=== PATIENT | male | born 1975 | race African-American/Black ===

== ENCOUNTER 2023-05-01 18:51 | Observation (INO) ==
[2023-05-01] MEDS ORDERED: NS 0.9% 1000 ml BAG 1,000 ML IV ONE (19:32)
[2023-05-01 19:36] LABS: ABS Basophils 0.1 10^3/uL (0.0-0.1); ABS Eosinophils 0.1 10^3/uL (0.0-0.5); ABS Lymphocytes 1.2 10^3/uL (1.0-4.8); ABS Monocytes 0.7 10^3/uL (0.0-1.1); ABS Neutrophils 10.3 10^3/uL (1.5-7.6); ABS Nucleated RBC 0.01 10^3/ul; Eosinophil % 1.2 %; Hematocrit 37.9 % (38-53); Hemoglobin 12.6 g/dL (13.2-16.3); Lymphocyte % 9.5 %; Mean Corpuscular Hemoglobin 26.3 pg (27-33); Mean Corpuscular Hgb Conc 33.3 g/dL (31-36); Mean Corpuscular Volume 79.1 fL (80-97); Mean Platelet Volume 7.6 fL (7.5-11.2); Nucleated Red Blood Cells % 0.1 %/100WBC (0.0-0.8); Platelet Count 311 10^3/uL (150-450); Red Cell Distribution Width 14.4 % (12-17); White Blood Count 12.5 10^3/uL (3.6-10.2)
[2023-05-01 19:37] LABS: Urine Appearance Clear; Urine Bilirubin Negative (Negative); Urine Blood 1+ (Negative); Urine Color Yellow; Urine Glucose Negative (Negative); Urine Ketones Negative (Negative); Urine Nitrite Negative (Negative); Urine Protein 1+(30 mg/dL) (Negative); Urine Specific Gravity 1.027 (1.002-1.030); Urine Urobilinogen Negative (Negative)
[2023-05-01 19:51] LABS: Albumin 3.9 g/dL (3.2-5.2); Albumin/Globulin Ratio 1.3 (1-3); C Reactive Protein 66.29 mg/L (<8.01); Calcium 9.1 mg/dL (8.6-10.3); Creatinine, Serum 1.06 mg/dL (0.67-1.17); Potassium 3.7 mmol/L (3.5-5.0); Total Bilirubin 0.3 mg/dL (0.2-1.0); Total Protein 6.9 g/dL (6.4-8.9); eGFR CKD-EPI 86.6 (>60)
[2023-05-01 20:19] LABS: Urine Bacteria Absent (Absent); Urine Red Blood Cell 1+(3-5/hpf) (Absent); Urine Squamous Epithelial Cell Present (Absent); Urine White Blood Cell Trace(0-5/hpf) (Absent)
[2023-05-01] MEDS ORDERED: Iohexol 300 (CONTRAST) 10 ML SDV IV ONE (20:39)
[2023-05-01] MEDS: Piperacillin/Tazobac 3.375 BAG 3.375 GM/100 ML BAG IV ONE ×3 (21:37→21:54)
[2023-05-01] MEDS ORDERED: Ondansetron 4 mg VIAL 2 MG/ML 2 ml VIAL IV PRN (21:53)
[2023-05-01] MEDS ORDERED: HYDROmorphone 1 MG/1 ML SYRINGE IV SLOW PU PRN (21:53)
[2023-05-01] MEDS ORDERED: oxyCODONE/Acetamin 5/325 mg TAB PO PRN (21:53)
[2023-05-01] MEDS ORDERED: Calcium Carb (TUMS) 500 mg CHEW TAB PO PRN (21:57)
[2023-05-01] MEDS ORDERED: hydrALAZINE 20 mg/ml 1 ML Vial IV IV SLOW PU PRN (21:59)
[2023-05-01] MEDS ORDERED: Metoclopramide 5 MG/ML VIAL (10 mg) IV PRN (22:01)
[2023-05-01] MEDS: NS 0.9% 1000 ml BAG 1,000 ML IV SCH (23:17)
[2023-05-02] MEDS: HYDROmorphone 1 MG/1 ML SYRINGE IV SLOW PU PRN ×3 (00:27→07:15)
[2023-05-02] MEDS: Piperacillin/Tazobac 3.375 BAG 3.375 GM/100 ML BAG IV SCH ×3 (02:45→17:58)
[2023-05-02] MEDS ORDERED: Rocuronium 50 mg VIAL 10 mg/ml 5 ml VIAL (50 mg) ONE (09:34)
[2023-05-02] MEDS ORDERED: Ondansetron 4 mg VIAL 2 MG/ML 2 ml VIAL ONE (09:38)
[2023-05-02] MEDS ORDERED: Dexamethasone IV 4 MG/ML VIAL 1 ml VIAL ONE (09:38)
[2023-05-02] MEDS ORDERED: Lidocaine 2% PF 5 ML VIAL ONE (09:38)
[2023-05-02] MEDS ORDERED: Propofol 10 MG/ML 20 ML BTL ONE (09:38)
[2023-05-02] MEDS ORDERED: Midazolam 2 mg/2 ml VIAL 1 mg/ml 2 ml VIAL (2 mg) ONE (09:39)
[2023-05-02] MEDS ORDERED: Naloxone 0.4 mg VIAL 0.4 mg/ml 1 ml VIAL IV PRN (09:39)
[2023-05-02] MEDS ORDERED: Ondansetron 4 mg VIAL 2 MG/ML 2 ml VIAL IV PRN (09:39)
[2023-05-02] MEDS ORDERED: HYDROmorphone 1 MG/1 ML SYRINGE IV PRN (09:39)
[2023-05-02] MEDS ORDERED: fentaNYL 100 mcg/2 ml 50 MCG/ML VIAL IV PRN (09:39)
[2023-05-02] MEDS ORDERED: fentaNYL 250 mcg/5 ml 50 MCG/ML 5 ml VIAL (250 MCG) ONE (09:39)
[2023-05-02] MEDS ORDERED: Lidocaine 1% w EPI 1:100,000 MDV 20 ML VIAL ONE (09:42)
[2023-05-02] MEDS ORDERED: Bupivacaine 0.25% SDV 30 ML ONE (09:42)
[2023-05-02] MEDS ORDERED: Piperacillin/Tazobac 3.375 BAG 3.375 GM/100 ML BAG IV ONE (09:47)
[2023-05-02] MEDS ORDERED: Acetaminophen IV 1 GM/100ML 1,000 MG/100 ML BAG IV ONE (10:39)
[2023-05-02] MEDS ORDERED: HYDROmorphone 0.5 MG/0.5 ML SYRINGE ONE ×2 (11:18→11:45)
[2023-05-02] MEDS ORDERED: fentaNYL 100 mcg/2 ml 50 MCG/ML VIAL ONE (13:38)
[2023-05-02] MEDS: NS 0.9% 1000 ml BAG 1,000 ML IV SCH ×2 (14:30→22:07)
[2023-05-03] MEDS: Piperacillin/Tazobac 3.375 BAG 3.375 GM/100 ML BAG IV SCH ×2 (02:28→11:30)
[2023-05-03] MEDS: HYDROmorphone 1 MG/1 ML SYRINGE IV SLOW PU PRN (05:35)
[2023-05-03] MEDS: NS 0.9% 1000 ml BAG 1,000 ML IV SCH (05:54)
[2023-05-03] MEDS ORDERED: HYDROmorphone 0.5 MG/0.5 ML SYRINGE IV SLOW PU ONE (13:36)
[2023-05-03 14:26] VITALS: BP 110/68
[2023-05-05 13:09] LABS: Anaplasma phagocytophilum Negative (Negative); B. miyamotoi PCR, B Negative (Negative); Babesia divergens/MO-1 Negative (Negative); Babesia ducani Negative (Negative); Ehrlichia chaffeensis Negative (Negative); Ehrlichia ewingii/canis Negative (Negative); Ehrlichia muris eauclairensis Negative (Negative)
== END 2023-05-03 16:25 | disposition home or self-care (01) ==
LOC: EDHOLD 18:51 → ED 18:51 → SDS 21:53 → EDHOLD 05-02 08:54 → SSU 05-02 14:07
PROVIDERS: ADMIT Surgery; ATTEND Surgery